=== PATIENT | male | born 1980 | race Caucasian/White ===

== ENCOUNTER → 2017-05-23 | Outpatient (CLI) | payer BC ==
--- NOTE | 2017-05-23 12:02 | REP ---
MRI of the right knee: There are no comparison studies. The study is performed with proton density and T2 data sets in sagittal, axial and coronal projections. There is a large osteochondral fracture along the weightbearing surface of the medial femoral condyle medially measuring 2.9 cm transversely by 3.5 cm AP by 1.8 cm in depth. There are two interarticular loose body fracture fragments, one in the suprapatellar pouch measuring 2.5 centimeters in length by 5.8 cm transversely. The other is in the Hoffa's fat pad posterior superiorly measuring 1.6 cm length by 0.7 cm transversely. There is a joint effusion. There is a Lopez's cyst measuring 6.5 cm craniocaudad by 3.1 cm transversely by 0.9 cm AP. There are suprapatellar plica outlined by the effusion. The patellar and trochlear articular cartilage is unremarkable. There is a defect along the weightbearing surface of the lateral femoral condyle cartilage measuring 3.3 mm in diameter. This could be a cartilaginous avulsion or chondromalacia. The cartilage of the lateral tibial plateau is unremarkable. The large osteochondral fracture involves the weightbearing cartilage of the medial femoral condyle. The cartilage of the medial tibial plateau is unremarkable. The medial and lateral menisci are unremarkable. The anterior posterior cruciate ligaments are unremarkable. The medial a and lateral collateral ligaments are unremarkable. The quadriceps and patellar tendons are unremarkable. Impression: There is a large osteochondral fracture along the weightbearing surface of the medial femoral condyle. There are two intra-articular loose body fracture fragments. There is a joint effusion. There is a Lopez's cyst. There is a 3 ml defect in the articular cartilage of the lateral femoral condyle along its weightbearing surface. Then the menisci, ligaments and tendons are unremarkable. Signed by Aldo Gallagher MD 05/23/2017 11:53 A
== END ==
LOC: M RAD 09:22
PROVIDERS: ATTEND Physician Assistant Surgical
DX: S72.431A Displaced fracture of medial condyle of right femur, initial encounter for closed fracture (principal); M71.21 Synovial cyst of popliteal space [Baker], right knee; M94.8X5 Other specified disorders of cartilage, thigh